=== PATIENT | female | born 1960 | race Caucasian/White ===

== ENCOUNTER 2017-06-19 19:02 | Emergency (ER) | payer BC | END 2017-06-19 21:04 | disposition left against medical advice (07) | LOC: UCCORT 19:02 | DX: M25.539 Pain in unspecified wrist (principal); Z53.21 Procedure and treatment not carried out due to patient leaving prior to being seen by health care provider ==

== ENCOUNTER 2017-11-29 11:04 | Emergency (ER) | payer BC | END 2017-11-29 14:38 | disposition left against medical advice (07) | LOC: UCCORT 11:04 | DX: R50.9 Fever, unspecified (principal); H57.9 Unspecified disorder of eye and adnexa; R05 Cough; Z53.21 Procedure and treatment not carried out due to patient leaving prior to being seen by health care provider ==

== ENCOUNTER 2018-08-26 13:58 | Emergency (ER) | payer BC ==
[2018-08-26 16:19] VITALS: BP 111/50
--- NOTE | 2018-08-26 16:57 | ED ---
Respiratory - HPI Summary HPI Summary: 57 yo WF h/o COPD c/o worsening cough with B/L rib pains x 1 week after being dx 'd with laryngitis last week, associated with PADILLA, sinus tenderness and low grade fevers. - History of Current Complaint Chief Complaint: UCGeneralIllness Stated Complaint: VOICE LOSS, COUGH, HEADACHE Time Seen by Provider: 08/26/18 16:20 Hx Obtained From: Patient Onset/Duration: Lasting Weeks Initial Severity: Moderate Pain Intensity: 4 Character: Cough (Nonproductive) - Allergy/Home Medications Allergies/Adverse Reactions: Allergies Allergy/AdvReac Type Severity Reaction Status Date / Time erythromycin base Allergy Nausea And Verified 08/26/18 16:14 Vomiting Home Medications: Home Medications Acetaminophen [Mapap] 650 mg PO ONCE 08/26/18 [History Confirmed 08/26/18] PMH/Surg Hx/FS Hx/Imm Hx Previously Healthy: Yes Endocrine/Hematology History: Reports: Hx Thyroid Disease - HYPOTHYROID Denies: Hx Diabetes Cardiovascular History: Denies: Hx Hypertension Respiratory History: Reports: Hx Asthma - ROUTINE AND PRN MEDICATION FOR, Hx Chronic Obstructive Pulmonary Disease (COPD) GI History: Denies: Hx Ulcer Sensory History: Denies: Hx Contacts or Glasses, Hx Hearing Aid Opthamlomology History: Denies: Hx Contacts or Glasses Psychiatric History: Reports: Hx Anxiety - PRN MEDICATION FOR - Surgical History Surgery Procedure, Year, and Place: Tubal ligation. 4 c-sections. RIGHT HAND SURGERY- AGE 11. 2012-INDEX FINGER SURGERY-[facility] – [place] Hx Anesthesia Reactions: No Infectious Disease History: No Infectious Disease History: Denies: Hx Hepatitis, Hx Human Immunodeficiency Virus (HIV), Traveled Outside the [place] in Last 30 Days - Family History Known Family History: Positive: Diabetes - Social History Alcohol Use: Occasionally Substance Use Type: Reports: None Smoking Status (MU): Former Smoker Type: Cigarettes Amount Used/How Often: 4 CIGS/DAILY X 20 YEARS Have You Smoked in the Last Year: Yes Review of Systems Positive: Chills Eyes: Negative Positive: Nasal Discharge Cardiovascular: Negative Positive: Cough Gastrointestinal: Negative Genitourinary: Negative Musculoskeletal: Negative Skin: Negative Neurological: Negative Psychological: Normal All Other Systems Reviewed And Are Negative: Yes Physical Exam - Summary Physical Exam Summary: Vital Signs Reviewed: Yes Appearance: Positive: Well-Appearing Skin: Positive: Warm Head/Face: Positive: Normal Head/Face Inspection Eyes: Positive: Normal, EOMI, RENETTA ENT: Positive: Normal ENT inspection, hoarse voice Neck: Positive: Supple Respiratory/Lung Sounds: Positive: Clear to Auscultation Cardiovascular: Positive: Normal, RRR, S1, S2 Abdomen Description: Positive: Nontender, Soft Musculoskeletal: Positive: Normal Neurological: Positive: CN Intact II-XII Psychiatric: Positive: Normal Triage Information Reviewed: Yes Vital Signs On Initial Exam: Initial Vitals Temp Pulse Resp BP Pulse Ox 36.8 C 87 17 111/50 94 08/26/18 16:10 08/26/18 16:10 08/26/18 16:10 08/26/18 16:10 08/26/18 16:10 Diagnostics - Vital Signs Vital Signs Temp Pulse Resp BP Pulse Ox 08/26/18 16:10 36.8 C 87 17 111/50 94 - Laboratory Lab Statement: Any lab studies that have been ordered have been reviewed, and results considered in the medical decision making process. Disposition - Course Assessment/Plan: URI to laryngitis now becoming bronchitis with pleuritic CP. - Sx tx with Mucinex DM, Promethazine with codeine and WAIT TO TAKE Z-eb until sx worsen in 48 hrs - Diagnoses Provider Diagnoses: Bronchitis, COPD exacerbation Discharge - Sign-Out/Discharge Documenting (check all that apply): Patient Departure All imaging exams completed and their final reports reviewed: Yes - Discharge Plan Condition: Stable Disposition: HOME Prescriptions: Azithromyxin EB (NF) [Z-Eb (Zithromax) 250 mg tabs #6] 2 tab PO .TODAY, THEN 1 DAILY #6 tab Guaifenesin/Dextromethorphan [Mucinex Dm ER 600-30 mg Tablet] 1 each PO BID 5 Days #10 tab.er.12h Promethazine HCl/Codeine [Prometh-Codein 6.25-10 mg/5 ml] 5 ml PO QID 5 Days #1 btl MDD 20 ml Patient Education Materials: Acute Bronchitis (ED), COPD (Chronic Obstructive Pulmonary Disease) (ED) Referrals: Heike Gerardo PA [Primary Care Provider] - Additional Instructions: Wait to take Z-apk for 2 days until sx worsen - Billing Disposition and Condition Condition: STABLE Disposition: Home
== END 2018-08-26 16:59 | disposition home or self-care (01) ==
LOC: UCCORT 13:58
DX: J44.1 Chronic obstructive pulmonary disease with (acute) exacerbation (principal); J40 Bronchitis, not specified as acute or chronic; J45.909 Unspecified asthma, uncomplicated; Z88.1 Allergy status to other antibiotic agents; Z87.891 Personal history of nicotine dependence
CPT/HCPCS: 99212; G0463

== ENCOUNTER 2019-03-25 09:03 | Emergency (ER) | payer BC ==
[2019-03-25 10:10] VITALS: BP 122/78
--- NOTE | 2019-03-25 10:20 | UC ---
Respiratory Complaint HPI - HPI Summary HPI Summary: Per foreign collection clerk: "For about a week pt has had a cough, post nasal drip, sinus congestion - which has gotten worse in the last 2 days, pt waking up with a headache, coughing has gotten worse, upset stomach." + COPD, asthma. used albuterol 2-3 hrs ago. It does give some relief. -mild sinus pressure over cheeks/forehead x 2-3 days. -no wheezing + PND. has not used netti pot or saline lavage. - History of Current Complaint Chief Complaint: UCGeneralIllness Stated Complaint: SINUSES, UPSET STOMACH Time Seen by Provider: 03/25/19 10:19 Pain Intensity: 0 - Allergies/Home Medications Allergies/Adverse Reactions: Allergies Allergy/AdvReac Type Severity Reaction Status Date / Time erythromycin base Allergy Nausea And Verified 03/25/19 10:11 Vomiting Home Medications: Home Medications Meloxicam 1 tab PO BID 03/25/19 [History Confirmed 03/25/19] Theophylline TAB* [Derik Dur 300 MG*] 1 tab PO BID 03/25/19 [History Confirmed ] PMH/Surg Hx/FS Hx/Imm Hx Previously Healthy: Yes Respiratory History: COPD, Asthma - Surgical History Surgical History: Yes Surgery Procedure, Year, and Place: Tubal ligation. 4 c-sections. RIGHT HAND SURGERY- AGE 11. 2013-middle [place] SURG[place] [place] - Family History Known Family History: Positive: Diabetes - Social History Alcohol Use: Occasionally Substance Use Type: None Smoking Status (MU): Former Smoker Type: Cigarettes Amount Used/How Often: 4 CIGS/DAILY X 20 YEARS Have You Smoked in the Last Year: Yes When Did the Patient Quit Smoking/Using Tobacco: 02/2018 Household Exposure Type: Cigarettes - Immunization History Most Recent Influenza Vaccination: [id number] Review of Systems All Other Systems Reviewed And Are Negative: Yes Constitutional: Positive: Negative Skin: Positive: Negative. Negative: Rash Eyes: Positive: Negative ENT: Positive: Ear Ache, Sinus Congestion, Sinus Pain/Tenderness. Negative: Dental Pain Respiratory: Positive: Shortness Of Breath, Cough Cardiovascular: Positive: Negative Gastrointestinal: Positive: Negative Genitourinary: Positive: Negative Motor: Positive: Negative Neurovascular: Positive: Negative Musculoskeletal: Positive: Negative Neurological: Positive: Negative Psychological: Positive: Negative Is Patient Immunocompromised?: No Physical Exam Triage Information Reviewed: Yes Appearance: Well-Appearing, No Pain Distress, Well-Nourished - very pleasant Vital Signs: Initial Vital Signs Temp 98.1 F 03/25/19 10:05 Pulse 72 03/25/19 10:05 Resp 18 03/25/19 10:05 BP 122/78 03/25/19 10:05 Pulse Ox 97 03/25/19 10:05 Vital Signs Reviewed: Yes Eye Exam: Normal ENT: Positive: Pharyngeal erythema - mild w/ + PND, Nasal congestion, Nasal drainage, TMs normal, Sinus tenderness - mild b/l frontal and maxillary. Negative: TM bulging, TM dull, TM red, Hoarse voice, Dental tenderness Dental Exam: Normal Neck exam: Normal Neck: Positive: Supple, Nontender, No Lymphadenopathy Respiratory: Positive: Lungs clear, No respiratory distress, No accessory muscle use, Decreased breath sounds - mild/. Negative: Crackles, Rhonchi, Stridor, Wheezing Cardiovascular Exam: Normal Cardiovascular: Positive: RRR, No Murmur, Pulses Normal, Brisk Capillary Refill Abdomen Description: Positive: Nontender, Soft Musculoskeletal Exam: Normal Neurological Exam: Normal Psychological Exam: Normal Skin Exam: Normal Respiratory Course/Dx - Course Course Of Treatment: -no bacterial infection. can rinse sinuses w/ saline lavage and flonase for sinus sx. lungs w/ mild decerased breath sounds and ? wheezing despite alb MDI 2 hrs ago, prednisone will help. she has used it before, typically 1 dose pack annually. never had SEs. - Differential Dx/Diagnosis Differential Diagnosis/HQI/PQRI: Bronchitis, Exacerbation Of COPD, Sinusitis Provider Diagnosis: Bronchitis, Upper respiratory infection Discharge - Sign-Out/Discharge Documenting (check all that apply): Patient Departure All imaging exams completed and their final reports reviewed: No Studies - Discharge Plan Condition: Stable Disposition: HOME Prescriptions: methylPREDNISolone [Medrol Dosepak 4 MG*] 4 mg PO DAILY #1 lorena Patient Education Materials: Upper Respiratory Infection (ED) Referrals: Heike Gerardo PA [Primary Care Provider] - 6 Days Additional Instructions: -We talked about the regimen of using a netti pot w/ distilled water followed by flonase nasal spray daily. Use the albuterol every 4-6 hrs as needed for cough while you are sick. The medrol dose pack will help your lungs and possibly your sinus infections as well. -Risks of prednisone include but are not limited to anxiety, agitation, insomnia , GI upset, elevated blood pressures and blood sugar readings, adrenal crisis and avascular necrosis of the hip -There is no evidence of any bactreial infection at this time. -You should be seen sooner if your asthma/COPD symptoms worsen. - Billing Disposition and Condition Condition: STABLE Disposition: Home
== END 2019-03-25 10:44 | disposition home or self-care (01) ==
LOC: UCCORT 09:03
DX: J44.9 Chronic obstructive pulmonary disease, unspecified (principal); J06.9 Acute upper respiratory infection, unspecified; Z88.1 Allergy status to other antibiotic agents; Z87.891 Personal history of nicotine dependence
CPT/HCPCS: 99212; G0463

== ENCOUNTER 2019-04-09 16:44 | Emergency (ER) | payer BC ==
[2019-04-09 17:42] VITALS: BP 118/74
[2019-04-09] MEDS ORDERED: Amoxicillin PO (*) 500 MG CAP PO ONE (17:50)
[2019-04-09] MEDS ORDERED: Amoxicillin PO (*) 250 MG CAP PO ONE (17:50)
--- NOTE | 2019-04-09 17:57 | UC ---
Throat Pain/Nasal William HPI - HPI Summary HPI Summary: increased nasal congestion and ear pain. PADILLA. and cough, dyspnea with deep breaths. - History of Current Complaint Chief Complaint: UCGeneralIllness Stated Complaint: RE-CK PADILLA, BODYACHES,FEVER Time Seen by Provider: 04/09/19 17:38 Hx Obtained From: Patient ?: No Onset/Duration: Sudden Onset, Lasting Days Severity: Mild Pain Intensity: 3 Associated Signs & Symptoms: Positive: Dysphagia, Sinus Discomfort, Nasal Discharge, Fever - Allergies/Home Medications Allergies/Adverse Reactions: Allergies Allergy/AdvReac Type Severity Reaction Status Date / Time erythromycin base Allergy Nausea And Verified 04/09/19 17:42 Vomiting Home Medications: Home Medications Albuterol 2.5MG/3ML (0.083%)* [Ventolin 2.5 MG/3 ML NEB.ANNA*] 2.5 mg INH Q6H PRN 04/09/19 [History Confirmed 04/09/19] PMH/Surg Hx/FS Hx/Imm Hx Previously Healthy: Yes - Surgical History Surgical History: Yes Surgery Procedure, Year, and Place: Tubal ligation. 4 c-sections. RIGHT HAND SURGERY- AGE 11. 2012-middle finger SURGERY-[facility] – [place] - Family History Known Family History: Positive: Diabetes - Social History Alcohol Use: Occasionally Substance Use Type: None Smoking Status (MU): Former Smoker Type: Cigarettes Amount Used/How Often: 4 CIGS/DAILY X 20 YEARS Have You Smoked in the Last Year: Yes When Did the Patient Quit Smoking/Using Tobacco: 02/2018 Household Exposure Type: Cigarettes - Immunization History Most Recent Influenza Vaccination: [id number] Review of Systems All Other Systems Reviewed And Are Negative: Yes Constitutional: Positive: Fever, Chills, Fatigue ENT: Positive: Sore Throat, Ear Ache, Nasal Discharge, Sinus Congestion, Sinus Pain/Tenderness Respiratory: Positive: Cough Neurological: Positive: Headache Is Patient Immunocompromised?: No Physical Exam Triage Information Reviewed: Yes Appearance: Well-Nourished, Ill-Appearing, Pain Distress Vital Signs: Initial Vital Signs Temp 98.9 F 04/09/19 17:39 Pulse 105 04/09/19 17:39 Resp 20 04/09/19 17:39 BP 118/74 04/09/19 17:39 Pulse Ox 95 04/09/19 17:39 Vital Signs Reviewed: Yes Eye Exam: Normal ENT: Positive: Pharyngeal erythema, Other - bilateral external ear canals are swollen and red Dental Exam: Normal Neck exam: Normal Respiratory Exam: Normal Respiratory: Positive: Chest non-tender, No respiratory distress, No accessory muscle use, Wheezing, Inspiration Cardiovascular Exam: Normal Cardiovascular: Positive: RRR, No Murmur, Pulses Normal Abdominal Exam: Normal Bowel Sounds: Positive: Present Musculoskeletal Exam: Normal Neurological Exam: Normal Psychological Exam: Normal Skin Exam: Normal Throat Pain/Nasal Course/Dx - Course Course Of Treatment: hx obtained, exam performed ,meds reviewed, treated for sinusitis and wheezing - Differential Dx/Diagnosis Differential Diagnosis/HQI/PQRI: Otitis Media, Pharyngitis, Sinusitis, URI Provider Diagnosis: Sinusitis, Wheezing Discharge - Sign-Out/Discharge Documenting (check all that apply): Patient Departure All imaging exams completed and their final reports reviewed: No Studies - Discharge Plan Condition: Stable Disposition: HOME Patient Education Materials: Sinusitis (ED) Referrals: Heike Gerardo PA [Primary Care Provider] - Additional Instructions: 1. take the medication as prescribed. 2. Increase fluids and rest 3. I would recommend using your albuterol neb at least eveyr morning and night and throughout the day as needed. 4. Follow up if not improving. - Billing Disposition and Condition Condition: STABLE Disposition: Home
== END 2019-04-09 18:18 | disposition home or self-care (01) ==
LOC: UCCORT 16:44
DX: J32.9 Chronic sinusitis, unspecified (principal); R06.2 Wheezing; Z88.1 Allergy status to other antibiotic agents; Z87.891 Personal history of nicotine dependence
CPT/HCPCS: 99212; A9270-GY; G0463